=== PATIENT | male | born 1965 | race Caucasian/White ===

== ENCOUNTER → 2020-07-17 15:31 | Outpatient (BNVA) | payer MEDICAID, SELFPAY | PROVIDERS: PCP Student in an Organized Health Care Education/Training Program; Visit Provider Student in an Organized Health Care Education/Training Program | DX: M77.11 Lateral epicondylitis, right elbow (principal) | CPT/HCPCS: 99212 ==

== ENCOUNTER 2020-08-22 13:00 | Outpatient (RCR) | payer MEDICAID, SELFPAY ==
--- NOTE | 2020-08-22 13:34 | MHC.OT.DC ---
[address] [phone] F: [phone] Occupational Therapy Discharge Note Provider: Dr. Martinez Diagnosis: Right lateral epicondylitis Date of Evaluation: 07/29/20 Date of Discharge: 08/22/20 Treatments to Date: 7 Cancellations to Date: 0 Discharge Status: Achieved Goals Improved Function Independent with HEP Discharge Summary: Pt reporting lower pain today and good follow through w/ HEP. Wearing CFB. STM met, progressing towards LTG and Ind w/ self management. Electronically Signed By: Zina Mcdonald OTR/L Please Sign and return to therapist, thank you for your referral.
== END 2020-11-05 07:29 | disposition home or self-care (01) ==
LOC: HO.OT 13:00
PROVIDERS: Visit Provider Student in an Organized Health Care Education/Training Program
DX: M77.11 Lateral epicondylitis, right elbow (principal)
CPT/HCPCS: 97033; 97110; 97165

== ENCOUNTER 2021-07-10 08:55 | Outpatient (REF) | payer MEDICAID, SELFPAY ==
--- NOTE | ~2021-07-10 | XR_ITS ---
EXAMINATION: XR HAND, RIGHT CLINICAL INFORMATION: Pain in right hand COMPARISON: None TECHNIQUE: PA, lateral, and oblique views of the right hand. FINDINGS: Bones are normal anatomic alignment. I do not appreciate any acute fracture or dislocation. No bony destructive lesions or periosteal reaction. Minimal degenerative changes with slight osteophyte formation in the DIP joints. XR/XR hand RT min 3V IMPRESSION: Minimal degenerative changes but no acute bony abnormality.
== END 2021-07-10 08:56 | disposition home or self-care (01) ==
LOC: HO.XRAY 08:55
PROVIDERS: PCP Student in an Organized Health Care Education/Training Program; Visit Provider Nurse Practitioner Family
DX: M79.7 Fibromyalgia (principal); M79.641 Pain in right hand
CPT/HCPCS: 73130; 99212

== ENCOUNTER 2021-07-29 08:55 | Outpatient (RCR) | payer MEDICAID, SELFPAY ==
--- NOTE | 2021-08-05 10:48 | MHC.OT.DC ---
[address] [phone] F: [phone] Occupational Therapy Discharge Note Provider: Fang Singh Diagnosis: Lateral epicondylitis Date of Surgery: Date of Evaluation: 07/29/21 Date of Discharge: 08/05/21 Treatments to Date: 1 Cancellations to Date: 0 No Shows to Date: 2 Discharge Status: Visit Non-compliance Discharge Summary: Pt is a 56 yo male with worsening right lateral elbow pain and complaint of pain at radial wrist and digits Recent Xr shows mild degenerative changes at DIP jts Significant inc muscle bulk at arm and hand suggests inc use of right > left He was in OT exactly one year ago on 07/29/20 for same diagnosis of lat epicondylitis with a good outcome Today he present with S+S consistant with right lateral epicondylitis and complaint of bilateral elbow greater at night and right thumb pain limiting use of his hands. His Quick DASH score ie 93 pts [ End ] Electronically Signed By: Dorita Siddiqui OT CHT CLT Reviewed/agree with student documentation: N/A Therapist: Please Sign and return to therapist, thank you for your referral.
== END 2021-08-05 10:50 | disposition home or self-care (01) ==
LOC: HO.OT 08:55
PROVIDERS: PCP Student in an Organized Health Care Education/Training Program; Visit Provider Nurse Practitioner Family
DX: M77.11 Lateral epicondylitis, right elbow (principal)
CPT/HCPCS: 97166

== ENCOUNTER 2021-08-12 10:14 | Outpatient (REF) | payer MEDICAID, SELFPAY ==
[2021-08-12 11:23] LABS: Alanine Aminotransferase 14 U/L (0-40); Albumin Level 4.2 g/dL (3.5-5.0); Alkaline Phosphatase 50 U/L (39-117); Anion Gap 13 (12-20); Aspartate Amino Transferase 14 U/L (5-37); Bilirubin Total 0.6 mg/dL (0.0-1.0); Blood Urea Nitrogen 15 mg/dL (9-16); Calcium 9.5 mg/dL (8.4-10.2); Carbon Dioxide 24 mmol/L (22-29); Chloride 108 mmol/L (96-108); Estimated Glomerular Filt Rate > 60; Glucose Random 157 mg/dL (60-115); Potassium 4.2 mmol/L (3.3-5.1); Sodium 141 mmol/L (135-145); Total Protein 7.4 g/dL (6.5-8.0)
== END 2021-08-12 10:15 | disposition home or self-care (01) ==
LOC: HO.LAB 10:14
PROVIDERS: PCP Student in an Organized Health Care Education/Training Program; Visit Provider Nurse Practitioner Family
DX: M77.11 Lateral epicondylitis, right elbow (principal)
CPT/HCPCS: 36415; 80053

== ENCOUNTER → 2022-12-22 13:30 | Outpatient (BNVA) | payer MEDICAID, SELFPAY | PROVIDERS: PCP Student in an Organized Health Care Education/Training Program; Visit Provider Nurse Practitioner Family | DX: M79.7 Fibromyalgia (principal); M25.50 Pain in unspecified joint | CPT/HCPCS: 99212 ==

== ENCOUNTER 2023-12-20 10:24 | Outpatient (REF) | payer MEDICAID, SELFPAY ==
[2023-12-20 12:03] LABS: Alanine Aminotransferase 12 U/L (0-40); Alkaline Phosphatase 52 U/L (39-117); Anion Gap 11 (12-20); Aspartate Amino Transferase 14 U/L (5-37); Bilirubin Total 0.3 mg/dL (0.0-1.0); Blood Urea Nitrogen 16 mg/dL (9-16); C Reactive Protein 0.11 mg/dL (< or = 0.50); Carbon Dioxide 27 mmol/L (22-29); Chloride 109 mmol/L (96-108); Estimated Glomerular Filt Rate > 60; Glucose Random 118 mg/dL (60-115); Potassium 3.8 mmol/L (3.3-5.1); Sodium 143 mmol/L (135-145); Total Protein 7.3 g/dL (6.5-8.0)
[2023-12-20 12:11] LABS: Erythrocyte Sedimentation Rate 7 MM/HR (0-15)
== END 2023-12-20 10:25 | disposition home or self-care (01) ==
LOC: HO.LAB 10:24
PROVIDERS: PCP Student in an Organized Health Care Education/Training Program; Visit Provider Nurse Practitioner Family
DX: M25.50 Pain in unspecified joint (principal)
CPT/HCPCS: 36415; 80053; 85652; 86140

== ENCOUNTER 2024-10-13 10:17 | Outpatient (REF) | payer MEDICAID, SELFPAY ==
[2024-10-13 15:52] LABS: Alanine Aminotransferase 27 U/L (0-40); Albumin Level 4.1 g/dL (3.5-5.0); Alkaline Phosphatase 56 U/L (39-117); Anion Gap 12 (12-20); Aspartate Amino Transferase 28 U/L (5-37); Bilirubin Direct 0.1 mg/dL (0.0-0.5); Bilirubin Total 0.3 mg/dL (0.0-1.0); Blood Urea Nitrogen 16 mg/dL (9-16); Calcium 9.3 mg/dL (8.4-10.2); Carbon Dioxide 26 mmol/L (22-29); Chloride 108 mmol/L (96-108); Cholesterol 207 mg/dL (<200); Estimated Glomerular Filt Rate > 60; Glucose Random 109 mg/dL (60-115); HDL Cholesterol 38 mg/dL (>40); LDL Cholesterol Calculated 142 mg/dL (<100); Sodium 142 mmol/L (135-145); Total Protein 7.9 g/dL (6.5-8.0); Triglycerides 138 mg/dL (<150)
== END 2024-10-13 10:18 | disposition home or self-care (01) ==
LOC: HO.CHCLDS 10:17
PROVIDERS: Visit Provider Student in an Organized Health Care Education/Training Program
DX: I10 Essential (primary) hypertension (principal)
CPT/HCPCS: 36415; 80048; 80061; 80076

== ENCOUNTER 2025-01-15 15:25 | Outpatient (REF) | payer MEDICAID, SELFPAY ==
[2025-01-15 17:39] LABS: Estimated Average Glucose 111 mg/dL; Hemoglobin A1C 136.7362 umol/L; Hemoglobin A1c % 5.5 % (<6.0); Total Hemoglobin (HGBA1C) 3791.6525 umol/L
[2025-01-15 17:41] LABS: Anion Gap 14 (12-20); Blood Urea Nitrogen 16 mg/dL (9-16); Calcium 9.1 mg/dL (8.4-10.2); Carbon Dioxide 26 mmol/L (22-29); Chloride 105 mmol/L (96-108); Estimated Glomerular Filt Rate > 60; Glucose Random 83 mg/dL (60-115); Potassium 3.8 mmol/L (3.3-5.1); Sodium 141 mmol/L (135-145)
--- OUTSIDE RECORDS SUMMARY | 2025-01-15 18:14 | XMS_ITS | Encounter Summary ---
Author Organization [employer] Address [address] [place] [address] Care Team Providers Care Ordnance Artificer Name Role Phone Christianne Carrillo MD Primary Care Provider [phone] Encounter Details Date Type Department Care Team (Latest Contact Info) Description 01/15/2025 Travel Social History Tobacco Use Types Packs/Day Years Used Date Smoking Tobacco: Never Smokeless Tobacco: Never Depression Answer Date Recorded Patient Health Questionnaire-9 Score 18 10/13/2024 Patient Health Questionnaire-9 Score 18 10/13/2024 Last PHQ-9: Questionnaire Data Not on file 0 10/13/2024 Housing Stability Answer Date Recorded What is your housing situation today? I have kimberlynkris barroso 10/04/[address] you li ve. Do you have problems with any of the following? None of the above 10/04/2024 Food Insecurity Answer Date Recorded Within the past 12 months, y ou worried that your food would run out before you got money to buy more: Never True 10/04/2024 Within the past 12 months,th e food you bought just didn't last and you didn't have enough money to get more: Never True Transportation Answer Date Recorded In the past 12 months, has l ack of transportation kept you from medical appts, meetings, work or from getting things needed for daily living? No 10/04/2024 Utilities Answer Date Recorded In the past 12 months, has t he electric, gas, oil or water company threatened to shut off services in your home? No 10/04/2024 Depression Answer Date Recorded Patient Health Questionnaire-2 Score 5 10/13/2024 Internet Access Answer Date Recorded Internet Access Q1 Yes 10/04/2024 Internet Access Q2 Not on file 10/04/2024 Sex and Gender Information Value Date Recorded Sex Assigned at Male 07/20/2022 10:20 AM EDT Legal Sex Male 10:20 AM EDT Gender Identity Male 07/20/2022 10:20 AM EDT Sexual Orientation Straight 07/20/2022 10 :20 AM EDT documented as of this encounter Plan of Treatment Not on file documented as of this encounter Visit Diagnoses Not on filedocumented in this encounter Additional Health Concerns Assessment Noted Time PHQ-9 Depression Total Score: 18 025 10:28 AM EST documented as of this encounter Care Teams Ordnance Artificer Relationship Specialty Start Date End Date Christianne Carrillo MD [address] [place] [address] PCP - General Family Medicine 10/19/13 documented as of this encounter
--- OUTSIDE RECORDS SUMMARY | 2025-01-15 18:14 | XMS_ITS | Encounter Summary ---
Author Organization [employer] Address [address] [facility] [address] [place] [address] Care Team Providers Care Refinery Operator Assistant Name Role Phone Christianne Carrillo MD Primary Care Provider [phone] Reason for Visit * Reason Comments Rash Encounter Details Date Type Department Care Team ([facility] st Contact Info) Description 01/15/2025 3:00 PM EDT Office Visit [facility] [address], [place] [id number] Cali Azevedo MD [address] [place] [address] Nummular eczema (Primary Dx) Social History Tobacco Use Types Packs/Day Years Used Date Smoking Tobacco: Never Smokeless Tobacco: Never Depression Answer Date Recorded Patient Health Questionnaire-9 Score 18 10/13/2024 Patient Health Questionnaire-9 Score 18 10/13/2024 Last PHQ-9: Questionnaire Data Not on file 0 10/13/2024 Housing Stability Answer Date Recorded What is your housing situation today? I have kimberlyn barroso 10/04/[address] you [...] AM EDT documented as of this encounter Last Filed Vital Signs Vital Sign Reading Time Taken Comments Blood Pressure 141/93 01/15/2025 2:35 PM EDT Pulse 64 01/15/2025 2:35 PM EDT Temperature 36.8 ??C (98.2 ??F) 01/15/2025 2:35 PM ED T Respiratory Rate 18 01/15/2025 2:35 PM EDT Oxygen Saturation 98% 01/15/2025 2:35 PM EDT Inhaled Oxygen Concentration - - Weight 97.2 kg (214 lb 4 oz) 01/15/2025 2:35 PM EDT Height 179.1 cm (5' 10.5 ) 01/15/2025 2:35 PM ED T Body Mass Index 30.31 01/15/2025 2:35 PM EDT documented in this encounter Progress Notes * Cali Azevedo MD - 01/15/2025 3:00 PM EDT MAGY Callahan is a 59 y.o. male who presents for Rash. Rash Pertinent negatives include no cough. 3 weeks history of an itchy skin lesion of the left proximal and lateral leg. Patient Active Problem List Diagnosis Basal cell carcinoma of skin Primary hypertension Anxiety No Known Allergies Current Outpatient Medications on File Prior to Visit Medication Sig Dispense Refill amLODIPine (Norvasc) 10 MG tablet Take 1 tablet by mouth at bed time. cetirizine (ZyrTEC) 10 MG tablet Take 1 tablet (10 mg) by mouth Once per day. 30 tablet 5 cyclobenzaprine (Flexeril) 10 MG tablet Take 1 tablet (10 mg) by mouth at bedtime. 30 tablet 0 Diclofenac Sodium (Voltaren) 1 % gel Apply 2 g topically in the morning and 2 g at noon and 2 g in the evening and 2 g before bedtime. DULoxetine (Cymbalta) [address] capsule Take 1 capsule by mouth every 12 (twelve) hours. gabapentin (Neurontin) 100 MG capsule TAKE 1 CAPSULE BY MOUTH THREE TIMES A DAY 90 capsule 0 hydroCHLOROthiazide (HYDRODiuril) 25 MG tablet TAKE 1 TABLET BY MOUTH EVERY DAY 90 tablet 0 ibuprofen 600 MG tablet Take 1 tablet by mouth every 6 (six) hours. lisinopril 30 MG tablet TAKE 1 TABLET BY MOUTH EVERY MORNING 30 tablet 10 loratadine (Claritin) 10 MG tablet Take 10 mg by mouth in the morning. Magnesium Bisglycinate (Mag Glycinate) 100 MG tablet Take 1 tablet by mouth 2 times daily. meloxicam (Mobic) 15 MG tablet TAKE 1 TABLET BY MOUTH EVERY DAY 30 tablet 2 OXcarbazepine (Trileptal) 300 MG/5ML suspension Take 5 mL by mouth every 12 (twelve) hours. Vitamin B Complex-C capsule Take 1 capsule by mouth in the morning. zolpidem (Ambien) 10 MG tablet No current facility-administered medications on file prior to visit. Review of Systems Constitutional: Negative for appetite change, chills and diaphoresis. Respiratory: Negative for cough and choking. Cardiovascular: Negative for leg swelling. Musculoskeletal: Negative for gait problem and joint swelling. Skin: Positive for rash. OBJECTIVE Vitals: 01/15/25 1435 BP: (!) 141/93 BP Location: Left arm Patient Position: Sitting BP Cuff Size: Adult Pulse: 64 Resp: 18 Temp: 98.2 ??F (36.8 ??C) TempSrc: Oral SpO2: 98% Weight: 214 lb 4 oz (97.2 kg) Height: 5' 10.5 (1.791 m) Physical Exam Constitutional: General: He is not in acute distress. Appearance: Normal appearance. He is not ill-appearing, toxic-appearing or diaphoretic. Pulmonary: Effort: Pulmonary effort is normal. Skin: Comments: 2 x 2 cm round erythematous patch with some fine scales Neurological: Mental Status: He is alert. Assessment/Plan Assessment/Plan Diagnoses and all orders for this visit: Nummular eczema Comments: Most likely. Doubt necrobiosis lipoidica Labs ordered. Patient will be contacted with results. Patient is to call the office in 2 weeks if the lesion is not resolved. Orders: - Basic Metabolic Panel; Future - Hemoglobin A1c; Future - triamcinolone (Kenalog) 0.1 % ointment; Apply topically 2 times daily. - fexofenadine (Jimena) 180 MG tablet; Take 1 tablet (180 mg) by mouth if needed each day (Allergies). documented in this encounter Plan of Treatment Not on file documented as of this encounter Procedures Procedure Name Priority Date/Time Associated Diagnosis Comments HEMOGLOBIN A1C Routine 01/15/2025 3:28 PM EDT Nummular eczema BASIC METABOLIC PANEL Routine 01/15/2025 3:28 PM EDT Nummular eczema documented in this encounter Results * Hemoglobin A1c (01/15/2025 3:28 PM EDT) Hemoglobin A1c 5.5 <6.0 % [facility] Comment:Hemoglobin A1C Refer ence Range Adults: 4.8 - 6.0 % Non diabetic: < 6.0 % Goal: < 7.0 %Additional Action Suggested: > 8.0 %Note: Hemoglobin A1c results are invalid for patients with abnormal amounts of HbF. Blood transfusions may impact the HbA1c concentration in the patient sample. Estimated Average Glucose 111 mg/dL [facility] Comment:eAG = Estimated ave rage glucose which is %A1C expressed asaverage glucose, using the formula of the B7A-[id number] Glucose study (ADAG), Diabetes Care, Vol.31,#8,Apr. 2007 Blood Venous blood specimen / Unknown 01/15/2025 3:28 PM EDT 01/15/2025 5:23 PM EDT us Cali Azevedo MD LAB BLOOD ORDERABLES Final Result [facility] [address] [place] [address] [phone] * Basic Metabolic Panel (01/15/2025 3:28 PM EDT) Sodium 141 135 - 145 mmol/L [facility] Potassium 3.8 3.3 - 5.1 mmol/L [facility] Chloride 105 96 - 108 mmol/L [facility] Carbon Dioxide 26 22 - 29 mmol/L [facility] Anion Gap 14 12 - 20 [facility] Urea Nitrogen (BUN) 16 9 - 16 mg/dL [facility] Creatinine, Serum 1.01 0.5 - 1.4 mg/dL [facility] Estimated Glomerular Filt Rate >60 [facility] Comment:Chronic Kidney Disea se: Estimated GFR < 60 mL/min/[id number] Kidney Disease: Estimated GFR < 15 mL/min/1.73m2 Glucose 83 60 - 115 mg/dL [facility] Calcium 9.1 8.4 - 10.2 mg/dL [facility] Blood Venous blood specimen / Unknown 01/15/2025 3:28 PM EDT 01/15/2025 5:23 PM EDT us Cali Azevedo MD LAB BLOOD ORDERABLES Final Result [facility] [address] [place] [address] [phone] documented in this encounter Visit Diagnoses Diagnosis Nummular eczema- Primary Contact dermatitis and other eczema, due to unspecified cause documented in this encounter Additional Health Concerns Assessment Noted Time PHQ-9 Depression Total Score: 18 10/13/2 025 10:28 AM EST documented as of this encounter Care Teams Refinery Operator Assistant Relationship Specialty Start Date End Date Christianne Carrillo MD [address] [place] [phone] PCP - General Family Medicine 10/19/13 documented as of this encounter
--- OUTSIDE RECORDS SUMMARY | 2025-01-15 18:14 | XMS_ITS | Clinical Summary ---
Author Organization [facility] Address [address] [place] [address] Phone Care Team Providers Care Medical Diagnostic Radiographer Name Role Phone Christianne Carrillo MD Primary Care Provider [phone] Allergies No known active allergies Medications ibuprofen (ADVIL,MOTRIN) 600 mg tablet Take 1 tablet (600 mg total) by mouth every 6 (six) hours if needed for moderate pain (for pain). 20 tablet 5 Active oxyCODONE (OXY-IR) 5 mg immediate release capsule Take 1 capsule (5 mg total) by mouth every 6 (six) hours if needed for severe pain. Max Daily Amount: 20 mg 8 capsule 5 Active tamsulosin (FLOMAX) 0.4 mg 24 hr capsule Take 1 capsule (0.4 mg total) by mouth 1 (one) time each day for 7 days. Capsules should be taken 30 minutes following the same meal each day. 7 capsule 5 01/07/20 25 Active Problems No known active problems Encounters Date Type Department Care Team Description 12/30/2024 4:04 PM EDT - 12/30/2024 8:33 PM EDT Emergency [facility] Emergency [address] [place] [address] Right nephrolithiasis (Primary Dx); Hydronephrosis with urinary obstruction due to renal calculus Discharge Disposition: Home or Self Care from Last 3 Months Social History Tobacco Use Types Packs/Day Years Used Date Smoking Tobacco: Never Assessed Sex and Gender Information Value Date Recorded Sex Assigned at Male 12/30/2024 4:14 PM EDT Legal Sex Male 2:34 PM EST Gender Identity Male 12/30/2024 4:14 PM EDT Sexual Orientation Straight 12/30/2024 4: 14 PM EDT Obstetrics History Last Filed Vital Signs Vital Sign Reading Time Taken Comments Blood Pressure 157/100 12/30/2024 7:41 PM EDT Pulse 87 12/30/2024 7:41 PM EDT Temperature 37.1 ??C (98.8 ??F) 12/30/2024 7:41 PM ED T Respiratory Rate 18 12/30/2024 7:41 PM EDT Oxygen Saturation 97% 12/30/2024 7:41 PM EDT Inhaled Oxygen Concentration - - Weight 95.3 kg (210 lb) 12/30/2024 3:58 PM EDT Height 177.8 cm (5' 10 ) 12/30/2024 3:58 PM EDT Body Mass Index 30.13 12/30/2024 3:58 PM EDT Plan of Treatment Health Maintenance Due Date Last Done Comments Hepatitis B Vaccines (1 of 3 - 19+ 3-dose series) 1985 Pneumococcal Vaccine: 50+ Years (1 of 2 - PCV) 1985 Pneumococcal Vaccine: Pediatrics (0 to 5 Years) and At-Risk Patients (6 to 64 Years) (1 of 2 - PCV) 1985 Zoster Vaccines (1 of 2) 1985 COVID-19 Vaccine (3 - Modern a risk series) 2021 01/18/2021, 12/21/2020 Colorectal Cancer Screening: Colonoscopy 12/30/2024 HIV Screening 12/30/2024 Hepatitis C Screening 12/30/2024 Social Influencers of Health Screening 12/30/2024 Influenza Vaccine (Season Ended) 2025 Depression Screening 10/13/2025 10/13/2024 Hypertension/CHF/CAD Annual BMP Blood Test 12/30/2025 12/30/2024, 10/13/2024 DTaP,Tdap,and Td Vaccines (2 - Td or Tdap) 03/23/2026 03/23/2016 Cholesterol Screening (Lipid Panel) 10/13/2029 10/13/2024 HIB Vaccines Aged Out No longer eligi ble based on patient's age to complete this topic HPV Vaccines Aged Out No longer eligi ble based on patient's age to complete this topic Hepatitis A Vaccines Aged Out No long er eligible based on patient's age to complete this topic IPV Vaccines Aged Out No longer eligi ble based on patient's age to complete this topic MMR Vaccines Aged Out No longer eligi ble based on patient's age to complete this topic Meningococcal ACWY Vaccine Aged Out N o longer eligible based on patient's age to complete this topic Meningococcal B Vaccine Aged Out No l onger eligible based on patient's age to complete this topic RSV Immunization Patients Under 20 months Aged Out No longer eligible b ased on patient's age to complete this topic Varicella Vaccines Aged Out No longer eligible based on patient's age to complete this topic Procedures Procedure Name Priority Date/Time Associated Diagnosis Comments CT ABDOMEN PELVIS WO CONTRAST STAT 12/30/2024 7:33 PM EDT BAPTISTE URINE CULTURE TUBE STAT 12/30/2024 6:13 PM EDT URINALYSIS WITH REFLEX MICROSCOPIC AND CULTURE STAT 12/30/2024 6:13 PM EDT URINALYSIS WITH REFLEX MICROSCOPIC AND CULTURE STAT 12/30/2024 6:13 PM EDT CBC WITH AUTO DIFFERENTIAL STAT 12/30/2024 4:10 PM EDT COMPREHENSIVE METABOLIC PANEL STAT 12/30/2024 4:10 PM EDT CBC AND DIFFERENTIAL STAT 12/30/2024 4:10 PM EDT from Last 3 Months Results * CT Abdomen Pelvis wo Contrast (12/30/2024 7:33 PM EDT) Anatomical Region Laterality Modality Body Computed Tomogra phy 12/30/2024 7:57 PM EDT Impressions 12/30/2024 7:57 PM EDT Obstructive 4 mm right ureteropelvic junction calculus with mild hydronephrosis. This document has been electronically signed by: Foster Mason MD on 12/30/2024 19:57:37 Narrative 12/30/2024 7:57 PM EDT INDICATION: Hematuria, unknown cause CT abdomen and pelvis without contrast Comparison: None Findings: Diffuse esophageal mural thickening, nonspecific. Atelectasis. Mild splenomegaly. Mild hepatomegaly. Distended gallbladder. Bilateral perinephric stranding, nonspecific. Obstructive 4 mm right ureteropelvic junction calculus with mild hydronephrosis. No bowel obstruction, pneumoperitoneum, or pneumatosis. Prominent inguinal and retroperitoneal nodes, nonspecific. Fat containing inguinal hernias. Right pelvic phleboliths. Prostatomegaly noted. Scattered colonic diverticulosis without diverticulitis or colitis. Mild rectal mural thickening may be related to degree of underdistention. Normal appendix. Osteopenia with diffuse multilevel spondylosis. Likely vertebral body hemangioma in the lower thoracic spine. Procedure Note Foster Mason MD - 12/30/2024 INDICATION: Hematuria, unknown cause CT abdomen and pelvis without contrast Comparison: None Findings: Diffuse esophageal mural thickening, nonspecific. Atelectasis. Mild splenomegaly. Mild hepatomegaly. Distended gallbladder. Bilateral perinephric stranding, nonspecific. Obstructive 4 mm right ureteropelvic junction calculus with mild hydronephrosis. No bowel obstruction, pneumoperitoneum, or pneumatosis. Prominent inguinal and retroperitoneal nodes, nonspecific. Fat containing inguinal hernias. Right pelvic phleboliths. Prostatomegaly noted. Scattered colonic diverticulosis without diverticulitis or colitis. Mild rectal mural thickening may be related to degree ofunderdistention. Normal appendix. Osteopenia with diffuse multilevel spondylosis. Likely vertebral body hemangioma in the lower thoracic spine. IMPRESSION: Obstructive 4 mm right ureteropelvic junction calculus with mild hydronephrosis. This document has been electronically signed by: Foster Mason MD on 12/30/2024 19:57:37 Emely [facility] [place] CT PROCEDURES Final Re sult * (ABNORMAL) Urinalysis with reflex microscopic and culture (12/30/2024 6:13 PM EDT) Pathologist [facility] Specific [place] Urine 1.013 1.003 - 1.030 LAB URINALYSIS - AUTOMATED METHOD 12/30/2024 6:36 PM EDT [facility] pH, Urine 7.0 5.0 - 8.0 pH LAB URINALYSIS - AUTOMATED METHOD 12/30/2024 6:[address] [facility] Leukocytes, Urine Negative Negative LAB URINALYSIS - AUTOMATED METHOD 12/30/2024 6:[address] [facility] Nitrite, Urine Negative Negative LAB URINALYSIS - AUTOMATED METHOD 12/30/2024 6:[address] [facility] Protein, Urine 100(A) <=Trace mg/dL LAB URINALYSIS - AUTOMATED METHOD 12/30/2024 6:[address] [facility] Glucose, Urine Negative Negative mg/dL LAB URINALYSIS - AUTOMATED METHOD 12/30/2024 6:[address] [facility] Ketones, Urine Trace(A) Negative mg/dL LAB URINALYSIS - AUTOMATED METHOD 12/30/2024 6:[address] [facility] Urobilinogen, Urine 0.2 0.2 - 1.0 mg/dL LAB URINALYSIS - AUTOMATED METHOD 12/30/2024 6:[address] [facility] Bilirubin, Urine Negative Negative LAB URINALYSIS - AUTOMATED METHOD 12/30/2024 6:[address] [facility] Blood, Urine Large(A) Negative LAB URINALYSIS - AUTOMATED METHOD 12/30/2024 6:[address] [facility] RBC, Urine 295.7(H) 0 - 4 /HPF LAB URINALYSIS - AUTOMATED METHOD 12/30/2024 6:[address] [facility] WBC, Urine 3.0 0 - 4 /HPF LAB URINALYSIS - AUTOMATED METHOD 12/30/2024 6:[address] [facility] Squamous Epithelial, Urine 4 0 - 60 /LPF LAB URINALYSIS - AUTOMATED METHOD 12/30/2024 6:[address] [facility] Bacteria, Urine Negative Negative /HPF LAB URINALYSIS - AUTOMATED METHOD 12/30/2024 6:36 PM EDT [facility] Hyaline Casts, Urine 1.6 0 - 3 /LPF LAB URINALYSIS - AUTOMATED METHOD 12/30/2024 6:36 PM EDT [facility] Urine Urine specimen obtained by clean catch procedure / Unknown Non-blood Collection / Unknown 12/30/2024 6:13 PM EDT 12/30/2024 6:18 PM EDT [facility] B Marco CHAPA LAB URINE ORDERABLES Final Resu lt Performing Organization Address City/[facility]/ZIP Co de Phone Number [facility] [address] [place] [address], [place] [phone] * Baptiste urine culture tube (12/30/2024 6:13 PM EDT) Extra Tube Hold for add-ons. 12/30/2024 8:01 PM EDT [facility] Comment:Auto resulted. Urine Urine specimen obtained by clean catch procedure / Unknown Non-blood Collection / Unknown 12/30/2024 6:13 PM EDT 12/30/2024 6:18 PM EDT Jagdeep B Marco CHAPA LAB URINE ORDERABLES Final Resu lt Performing Organization Address City/[facility]/ZIP Co de Phone Number [facility] [address] [place] [address], [place] [phone] * (ABNORMAL) CBC auto differential (12/30/2024 4:10 PM EDT) WBC 10.3 4.8 - 10.8 K/[facility] LAB HEMETOLOGY METHOD 12/30/2024 4:42 PM EDT [facility] RBC 5.10 4.50 - 5.50 M/mcL LAB HEMETOLOGY METHOD 12/30/2024 4:42 PM EDT [facility] Hemoglobin 15.5 13.5 - 17.5 g/dL LAB HEMETOLOGY METHOD 12/30/2024 4:42 PM T [facility] Hematocrit 45.2 42.0 - 54.0 % LAB HEMETOLOGY METHOD 12/30/2024 4:[address] [facility] MCV 87.9 79.0 - 98.0 FL LAB HEMETOLOGY METHOD 12/30/2024 4:[address] [facility] MCH 30.2 27.0 - 32.0 pcg LAB HEMETOLOGY METHOD 12/30/2024 4:[address] [facility] MCHC 34.3 32.0 - 37.0 g/dL LAB HEMETOLOGY METHOD 12/30/2024 4:[address] [facility] RDW 12.9 11.0 - 15.0 % LAB HEMETOLOGY METHOD 12/30/2024 4:[address] [facility] Platelets 191 130 - 400 K/mcL LAB HEMETOLOGY METHOD 12/30/2024 4:[address] [facility] MPV 11.3(H) 7.0 - 11.0 FL LAB HEMETOLOGY METHOD 12/30/2024 4:[address] [facility] NRBC 0.0 <1.0 % LAB HEMETOLOGY METHOD 12/30/2024 4:[address] [facility] NRBC Absolute 0.00 <0.10 K/mcL LAB HEMETOLOGY METHOD 12/30/2024 4:[address] [facility] Neutrophils Relative 48.0 % LAB HEMETOLOGY METHOD 12/30/2024 4:[address] [facility] Lymphocytes Relative 41.5 % LAB HEMETOLOGY METHOD 12/30/2024 4:[address] [facility] Monocytes Relative 8.9 % LAB HEMETOLOGY METHOD 12/30/2024 4:42 PM EDT [facility] Eosinophils Relative 0.8 % LAB HEMETOLOGY METHOD 12/30/2024 4:42 PM EDT [facility] Basophils Relative 0.4 % LAB HEMETOLOGY METHOD 12/30/2024 4:42 PM EDT [facility] Immature Granulocytes Relative 0.4 % LAB HEMETOLOGY METHOD 12/30/2024 4:42 PM EDT [facility] Neutrophils Absolute 4.96 1.50 - 7.00 K/mcL LAB HEMETOLOGY METHOD 12/30/2024 4:42 PM EDT [facility] Lymphocytes Absolute 4.28 1.00 - 5.00 K/mcL LAB HEMETOLOGY METHOD 12/30/2024 4:42 PM EDT [facility] Monocytes Absolute 0.92 0.20 - 1.00 K/mcL LAB HEMETOLOGY METHOD 12/30/2024 4:42 PM EDT [facility] Eosinophils Absolute 0.08 0.00 - 0.50 K/mcL LAB HEMETOLOGY METHOD 12/30/2024 4:42 PM EDT [facility] Basophils Absolute 0.04 0.00 - 0.20 K/mcL LAB HEMETOLOGY METHOD 12/30/2024 4:42 PM EDT [facility] Immature Granulocytes Absolute 0.04(H) 0.00 - 0.03 K/mcL LAB HEMETOLOGY METHOD 12/30/2024 4:42 PM EDT [facility] Blood Venous blood specimen / Unknown Venipuncture / Unknown 12/30/2024 4:10 PM EDT 12/30/2024 4:36 PM EDT us Jagdeep Pepe Lara MD LAB BLOOD ORDERABLES Final Resu lt [facility] [address] [place] [address], * (ABNORMAL) Comprehensive metabolic panel (12/30/2024 4:10 PM EDT) Sodium 141 133 - 145 mmol/L LAB CHEMISTRY METHOD 12/30/2024 5:[address] [facility] Potassium 3.7 3.5 - 5.5 mmol/L LAB CHEMISTRY METHOD 12/30/2024 5:[address] [facility] Chloride 108 96 - 110 mmol/L LAB CHEMISTRY METHOD 12/30/2024 5:[address] [facility] CO2 28 21 - 32 mmol/L LAB CHEMISTRY METHOD 12/30/2024 5:[address] [facility] Anion Gap 5 3 - 11 LAB CHEMISTRY METHOD 12/30/2024 5:[address] [facility] Glucose 109(H) 70 - 100 mg/dL LAB CHEMISTRY METHOD 12/30/2024 5:[address] [facility] BUN 19 5 - 25 mg/dL LAB CHEMISTRY METHOD 12/30/2024 5:[address] [facility] Creatinine 1.17 0.70 - 1.30 mg/dL LAB CHEMISTRY METHOD 12/30/2024 5:[address] [facility] eGFR 72 >=60 mL/min/1. 73m2 LAB CHEMISTRY METHOD 12/30/2024 5:[address] [facility] Comment:Calculation based on the??Chronic Kidney Disease Epidemiology Collaboration (CKD-EPI) equation refit??without adjustment for race. BUN/Creatinine Ratio 16.2 LAB CHEMISTRY METHOD 12/30/2024 5:[address] [facility] Calcium 9.6 8.5 - 10.5 mg/dL LAB CHEMISTRY METHOD 12/30/2024 5:[address] [facility] AST (SGOT) 22 10 - 42 unit/L LAB CHEMISTRY METHOD 12/30/2024 5:[address] [facility] ALT (SGPT) 25 10 - 60 unit/L LAB CHEMISTRY METHOD 12/30/2024 5:14 PM EDT [facility] Alkaline Phosphatase 66 42 - 121 unit/L LAB CHEMISTRY METHOD 12/30/2024 5:14 PM EDT [facility] Total Protein 7.8 6.0 - 8.0 g/dL LAB CHEMISTRY METHOD 12/30/2024 5:14 PM EDT [facility] Albumin 4.0 3.2 - 5.0 g/dL LAB CHEMISTRY METHOD 12/30/2024 5:14 PM EDT [facility] Total Bilirubin 0.4 0.0 - 1.4 mg/dL LAB CHEMISTRY METHOD 12/30/2024 5:14 PM EDT [facility] Blood Venous blood specimen / Unknown Venipuncture / Unknown 12/30/2024 4:10 PM EDT 12/30/2024 4:36 PM EDT Jagdeep Pepe Lara MD LAB BLOOD ORDERABLES Final Resu lt [facility] [address] [place] [address], from Last 3 Months Insurance MEDICAID - [place] Care Teams Medical Diagnostic Radiographer Relationship Specialty Start Date End Date Christianne Carrillo MD [address] [place] [phone] PCP - General Family Medicine 12/30/24
--- OUTSIDE RECORDS SUMMARY | 2025-01-15 18:14 | XMS_ITS | Encounter Summary ---
Author Organization [employer] Address [address] [facility] [address] [place] [address] Care Team Providers Care Funeral Professional Name Role Phone Christianne Carrillo MD Primary Care Provider [phone] Encounter Details Date Type Department Care Team ([facility] st Contact Info) Description 01/01/2025 Orders Only [facility] [address] [place] [address] ProviderFlorecita MD Social History Tobacco Use Types Packs/Day Years [...] Diagnosis Comments CT ABDOMEN PELVIS WO CONTRAST Routine 12/30/2024 9:53 AM EDT documented in this encounter Results * CT Abdomen Pelvis w/o Contrast (12/30/2024 9:53 AM EDT) Anatomical Region Laterality Modality Body, Pelvis, Abdomen Computed T omography Historical Provider MD [place] CT PROCEDURES Final R esult documented in this encounter Visit Diagnoses Not on filedocumented in this encounter Additional Health Concerns Assessment Noted Time PHQ-9 Depression Total Score: 18 025 10:28 AM EST documented as of this encounter Care Teams Funeral Professional Relationship Specialty Start Date End Date Christianne Carrillo MD [address] [place] [phone] PCP - General Family Medicine 10/19/13 documented as of this encounter
--- OUTSIDE RECORDS SUMMARY | 2025-01-15 18:14 | XMS_ITS | Encounter Summary ---
Author Organization [employer] Address [address] [facility] [address] [place] [address] Care Team Providers Care 21 Dealer Name Role Phone Christianne Carrillo MD Primary Care Provider Encounter Details Date Type Department Care Team ([facility] st Contact Info) Description 12/15/2022 Orders Only [facility] [address] [place] [address] Christianne Carrillo MD [address] [place] [address] Social History Tobacco Use Types Packs/Day Years [...] Diagnoses Not on filedocumented in this encounter Care Teams 21 Dealer Relationship Specialty Start Date End Date Christianne Carrillo MD [address] [place] [phone] PCP - General Family Medicine 10/19/13 documented as of this encounter
--- OUTSIDE RECORDS SUMMARY | 2025-01-15 18:14 | XMS_ITS | Encounter Summary ---
Author Organization [facility] [facility] Address [address] [place] [address] Care Team Providers Care Resolution Analyst Name Role Phone Christianne Carrillo MD Primary Care Provider [phone] Encounter Details Date Type Department Care Team (Latest Contact Info) Description 05/12/2022 Abstract [facility] CONVERSIONS Dental, Provider, DDS Social History Tobacco Use Types Packs/Day Years [...] on filedocumented in this encounter Care Teams Resolution Analyst Relationship Specialty Start Date End Date Christianne Carrillo MD [address] [place] [phone] PCP - General Family Medicine 10/19/13 documented as of this encounter
--- OUTSIDE RECORDS SUMMARY | 2025-01-15 18:14 | XMS_ITS | Clinical Summary ---
Author Organization [employer] Address [address] [facility] 7t [place] [address] Care Team Providers Care Business Risk Consultant Name Role Phone Christianne Carrillo MD Primary Care Provider [phone] Allergies No known active allergies Medications amLODIPine (Norvasc) 10 MG tablet Take 1 tablet by mouth at bed time. 2 Active Vitamin B Complex-C capsule Take 1 capsule by mouth in the morning. 5 Active Diclofenac Sodium (Voltaren) 1 % gel Apply 2 g topically in the morning and 2 g at noon and 2 g in the evening and 2 g before bedtime. 0 Active DULoxetine (Cymbalta) [address] capsule Take 1 capsule by mouth every 12 (twelve) hours. Active ibuprofen 600 MG tablet Take 1 tablet by mouth every 6 (six) hours. 1 Active loratadine (Claritin) 10 MG tablet Take 10 mg by mouth in the morning. 0 Active Magnesium Bisglycinate (Mag Glycinate) 100 MG tablet Take 1 tablet by mouth 2 times daily. 4 Active OXcarbazepine (Trileptal) 300 MG/5ML suspension Take 5 mL by mouth every 12 (twelve) hours. 2 Active zolpidem (Ambien) 10 MG tablet 3 Active gabapentin (Neurontin) 100 MG capsule TAKE 1 CAPSULE BY MOUTH THREE TIMES A DAY 90 capsule 4 Active hydroCHLOROthiazi de (HYDRODiuril) 25 MG tablet TAKE 1 TABLET BY MOUTH EVERY DAY 90 tablet 4 Active meloxicam (Mobic) 15 MG tablet TAKE 1 TABLET BY MOUTH EVERY DAY 30 tablet 2 4 Active cyclobenzaprine (Flexeril) 10 MG tablet Take 1 tablet (10 mg) by mouth at bedtime. 30 tablet 4 Active cetirizine (ZyrTEC) 10 MG tablet Take 1 tablet (10 mg) by mouth Once per day. 30 tablet 5 5 04/11/20 25 Active lisinopril 30 MG tablet TAKE 1 TABLET BY MOUTH EVERY MORNING 30 tablet 10 5 Active triamcinolone (Kenalog) 0.1 % ointmentIndicatio ns:Nummular eczema Apply topically 2 times daily. 30 g 5 Active fexofenadine (Jimena) 180 MG tabletIndications :Nummular eczema Take 1 tablet (180 mg) by mouth if needed each day (Allergies). 20 tablet 5 04/15/20 25 Active Active Problems Problem Noted Date Diagnosed Date Primary hypertension 10/13/2024 Anxiety 10/13/2024 Basal cell carcinoma of skin 03/27/2021 Encounters Date Type Department Care Team Description 01/15/2025 3:00 PM EDT Office Visit [facility] [address] [place], [place] [phone] Cali Azevedo MD Nummulamonica eczema (Primary Dx) 01/15/2025 Travel 01/01/2025 Orders Only [facility] [address] [place], [place] [phone] Provider, MD Florecita 12/01/2024 Population Health Risk Score [facility] [address] [place] [phone] Provider, Population Health Generic 11/27/2024 Refill [facility] [address], [place] [phone] Christianne Carrillo MD from Last 3 Months Social History Tobacco Use Types Packs/Day Years Used Date Smoking Tobacco: Never Smokeless Tobacco: Never Tobacco Cessation:Counseling Given: Not Answered Depression Answer Date Recorded Patient Health Questionnaire-9 [...] Orientation Straight 07/20/2022 10 :20 AM EDT Last Filed Vital Signs Vital Sign Reading [...] Mass Index 30.31 01/15/2025 2:35 PM EDT Plan of Treatment Health Maintenance Due Date Last Done Comments CT Colonography 1966 Colonoscopy 1966 Colorectal Cancer Screening 1966 Dental Prophylaxis 1966 FIT DNA/Cologuard 1966 FIT 1966 FOBT 1966 HIV Screening 1966 Sigmoidoscopy 1966 Derm Melanoma Skin Check 1966 Hepatitis C Screening 02/16/1984 Hepatitis B Vaccines (1 of 3 - 19+ 3-dose series) 1985 Pneumococcal Vaccine: 50+ Years (1 of 1 - PCV) 02/16/2016 Zoster Vaccines (1 of 2) 02/16/2016 Dental Oral Exam 11/13/2022 05/12/2022 Dental X-Ray: Bitewings 05/02/2023 05/01/2022 COVID-19 Vaccine (3 - 2023-2 5 season) 2024 01/18/2021, 12/21/2020 Influenza Vaccine (#1) 2025 Postp oned from 05/21/2024 (Patient Refused) Dental X-Ray: Full Mouth 05/13/2025 022, 05/01/2022 SDOH Screening 10/04/2025 10/04/2024 Alcohol/Substance Use Screening 10/13/2025 10/13/2024 Depression Screening 10/13/2025 10/13/2024, 10/13/2024 Tobacco Screening 01/15/2026 01/15/2025 DTaP/Tdap/Td Vaccines (2 - T d or Tdap) 03/23/2026 03/23/2016 Lipid Panel 10/13/2029 10/13/2024, 07/04/2021 RSV Patients and Patients Aged 60 years or older (1 - 1-dose 75+ series) 2041 HIB Vaccines Aged Out No longer eligi [...] patient's age to complete this topic Meningococcal Vaccine Aged Out No irma donnell eligible based on patient's age to complete this topic RSV under 20 months Aged Out No longe r eligible based on patient's age to complete this topic Rotavirus Vaccines Aged Out No longer eligible based on patient's age to complete this topic Procedures Procedure Name Priority Date/Time Associated Diagnosis Comments HEMOGLOBIN A1C Routine 01/15/2025 3:28 PM EDT Nummular eczema BASIC METABOLIC PANEL Routine 01/15/2025 3:28 PM EDT Nummular eczema CT ABDOMEN PELVIS WO CONTRAST Routine 12/30/2024 9:53 AM EDT LIPID PANEL, STANDARD Routine 10/13/2024 10:22 AM EST Primary hypertension PANORAMIC RADIOGRAPHIC IMAGE Routine 05/12/2022 12:00 AM EDT COMPREHENSIVE ORAL EVALUATION - NEW OR ESTABLISHED PATIENT Routine 05/12/2022 12:00 AM EDT INTRAORAL - COMPLETE SERIES OF RADIOGRAPHIC IMAGES Routine 05/01/2022 12:00 AM EDT from Last 3 Months or Most Recently Relevant to Health Maintenance Results * Hemoglobin A1c (01/15/2025 3:28 PM EDT) Hemoglobin A1c 5.5 <6.0 % [facility] Comment:Hemoglobin A1C Refer ence Range Adults: 4.8 - 6.0 % Non diabetic: < 6.0 % Goal: < 7.0 %Additional Action Suggested: > 8.0 %Note: Hemoglobin A1c results are invalid for patients with abnormal amounts of HbF. Blood transfusions may impact the HbA1c concentration in the patient sample. Estimated Average Glucose 111 mg/dL [facility] Comment:eAG = Estimated ave rage glucose which is %A1C expressed asaverage glucose, using the formula of the [id number] Glucose study (ADAG), Diabetes Care, Vol.31,#8,Apr. 2007 Blood Venous blood specimen / Unknown 01/15/2025 3:28 PM EDT 01/15/2025 5:23 PM EDT us Cali Azevedo MD LAB BLOOD ORDERABLES Final Result [facility] [address] [place] [phone] * Basic Metabolic Panel (01/15/2025 3:28 PM EDT) Sodium 141 135 - 145 mmol/L [facility] Potassium 3.8 3.3 - 5.1 mmol/L [facility] Chloride 105 96 - 108 mmol/L [facility] Carbon Dioxide 26 22 - 29 mmol/L [facility] Anion Gap 14 12 - 20 [facility] Urea Nitrogen (BUN) 16 9 - 16 mg/dL [facility] Creatinine, Serum 1.01 0.5 - 1.4 mg/dL [facility] Estimated Glomerular Filt Rate >60 [facility] Comment:Chronic Kidney Disea se: Estimated GFR < 60 mL/min/[id number] Kidney Disease: Estimated GFR < 15 mL/min/1.73m2 Glucose 83 60 - 115 mg/dL [facility] Calcium 9.1 8.4 - 10.2 mg/dL [facility] Blood Venous blood specimen / Unknown 01/15/2025 3:28 PM EDT 01/15/2025 5:23 PM EDT Cali Azevedo MD LAB BLOOD ORDERABLES Final Result [facility] [address] [place] [phone] * CT Abdomen Pelvis w/o Contrast (12/30/2024 9:53 AM EDT) Anatomical Region Laterality Modality Body, Pelvis, Abdomen Computed T omography us Historical Provider IMG CT PROCEDURES Final R esult * (ABNORMAL) Lipid Panel, Standard (10/13/2024 10:22 AM EST) Triglycerides 138 <150 mg/dL [facility] Comment:Desirable Triglyceri de: less than 150 mg/dLBorderline High Triglyceride 150-199 mg/dLHigh Triglyceride: 200-499 mg/dLVery High Triglyceride: greater than or equal to 5OO mg/dL Cholesterol 207(H) <200 mg/dL [facility] Comment:Desirable Cholestero l: less than 200 mg/dLBorderline High Cholesterol: 200-239 mg/dLHigh Cholesterol: greater than 239 mg/dL LDL Cholesterol Calculated 142(H) <100 mg/dL [facility] Comment:Desirable LDL: less than 100 mg/dLNear Optimal/Above Optimal LDL: 110- 129 mg/dLBorderline High LDL: 130-159 mg/dLHigh LDL: 160-189 mg/dLVery High LDL: greater than or equal to 190 mg/dL HDL Cholesterol 38(L) >40 mg/dL [facility] Comment:Desirable HDL: great er than 40 mg/dL Note: This HDL assay may give artificially low results in patients with liver disease. Blood Venous blood specimen / Unknown 10/13/2024 10:22 AM EST 10/13/2024 2:34 PM EST us Christianne Carrillo MD LAB BLOOD ORDERABLES Final Resul t [facility] [address] [place] [phone] from Last 3 Months or Most Recently Relevant to Health Maintenance Insurance [facility] STAND ADULT Care Teams Business Risk Consultant Relationship Specialty Start Date End Date Christianne Carrillo MD [address] [place] [phone] PCP - General Family Medicine 10/19/13
--- OUTSIDE RECORDS SUMMARY | 2025-01-15 18:14 | XMS_ITS | Encounter Summary ---
Author Organization [facility] Address [address] [facility] 7t [place] [address] Care Team Providers Care Eye Dropper Assembler Name Role Phone Christianne Carrillo MD Primary Care Provider [phone] Reason for Visit * Reason Comments Med Refill Encounter Details Date Type Department Care Team (Late st Contact Info) Description 03/15/2024 Refill [facility] [address] [place], [place] [phone] Christianne Carrillo MD [address] [place] [address] Social History Tobacco Use Types Packs/Day Years Used Date Smoking Tobacco: Never Smokeless Tobacco: Never Sex and Gender Information Value Date Recorded Sex Assigned at Male 07/20/2022 10:20 AM EDT Legal Sex Male 10:20 AM EDT Gender Identity Male 07/20/2022 10:20 AM EDT Sexual Orientation Straight 07/20/2022 10 :20 AM EDT documented as of this encounter Plan of Treatment Not on file documented as of this encounter Visit Diagnoses Not on filedocumented in this encounter Care Teams Eye Dropper Assembler Relationship Specialty Start Date End Date Christianne Carrillo MD [address] [place] [phone] PCP - General Family Medicine 10/19/13 documented as of this encounter
--- OUTSIDE RECORDS SUMMARY | 2025-01-15 18:14 | XMS_ITS | Encounter Summary ---
Author Organization [employer] Address [address] [facility] [address]t [place] [address] Care Team Providers Care Environmental Science Instructor Name Role Phone Christianne Carrillo MD Primary Care Provider [phone] Reason for Visit * Reason Onset Date Comments triage 12/14/2022 Encounter Details Date Type Department Care Team ([facility] st Contact Info) Description 12/14/2022 Telephone [facility] [address] [place], [place] [phone] Christianne Carrillo MD [address] [place] [address] triage Social History Tobacco Use Types Packs/Day Years Used Date Smoking Tobacco: Never Assessed Sex and Gender Information Value Date Recorded Sex Assigned at Male 07/20/2022 10:20 AM EDT Legal Sex Male 10:20 AM EDT Gender Identity Male 07/20/2022 10:20 AM EDT Sexual Orientation Straight 07/20/2022 10 :20 AM EDT documented as of this encounter Miscellaneous Notes * Telephone Encounter - Gabby Villa RN - 12/14/2022 4:05 PM EDT Called pt via [employer] drug [facility] alcohol treatment specialist [phone] Estella. Pt. States that he has been having flu like sx. Pt. Is having allergy and sinus sx. Pt. Is looking for refill on his Loratadine only. Pt. Is drinkingplenty of water and fluids to stay hydrated. Pt. Does not have any nasal drainage just excessive sneezing. No fever. Will submit refill for Loratadine as pt. Requests. Protocol Used: Sinus Pain or Congestion (Adult) Protocol-Based Disposition: Home Care Positive Triage Question: * Sinus congestion as part of a cold, present < 10 days * All higher-acuity triage questions were negative Care Advice Discussed: * Nasal Washes for a Stuffy Nose * How to Make Saline (Salt Water) Nasal Wash * Hydration * Telephone Encounter - Susan Scott - 12/14/2022 2:22 PM EDT Symptom: Sinus Symptoms Outcome: Schedule an appointment to be seen within 24 hours Reason: No high acuity concerns reported by caller The caller accepted this outcome documented in this encounter Plan of Treatment Not on file documented as of this encounter Visit Diagnoses Not on filedocumented in this encounter Care Teams Environmental Science Instructor Relationship Specialty Start Date End Date Christianne Carrillo MD [address] [place] [phone] PCP - General Family Medicine 10/19/13 documented as of this encounter
--- OUTSIDE RECORDS SUMMARY | 2025-01-15 18:14 | XMS_ITS | Clinical Summary ---
Author Organization [facility] Address [address] [place] [address] Care Team Providers Care Production Tech Name Role Phone Christianne Carrillo Primary Care Provider [phone] Allergies No known active allergies Medications diclofenac (VOLTAREN) 1% gel SMARTSI Gram(s) Topical 4 Times Daily PRN 07/03/2021 Active Cymbalta 30 mg capsule Take 30 mg by mouth once a day. 04/02/2021 Active lisinopriL (PRINIVIL,ZESTR IL) 10 mg tablet Take 10 mg by mouth once a day. 07/03/2021 Active meloxicam (MOBIC) 15 mg tablet Take 15 mg by mouth once a day. 07/03/2021 Active TrileptaL 600 mg tablet Take 600 mg by mouth 2 times a day. 04/02/2021 Active Ambien 10 mg tablet Take 10 mg by mouth nightly as needed. 06/17/2021 Active amLODIPine (NORVASC) 10 mg tablet TAKE 1 TABLET BY ORAL ROUTE EVERY DAY 10/27/2021 Active cyclobenzaprine (FLEXERIL) 10 mg tablet Take 10 mg by mouth nightly. 03/03/2021 Active hydroCHLOROthia zide (HYDRODIURIL) 25 mg tablet TAKE 1 TABLET BY ORAL ROUTE ONCE 10/27/2021 Active lisinopriL (PRINIVIL,ZESTR IL) 30 mg tablet TAKE 1 TABLET BY ORAL ROUTE EVERY DAY 07/07/2021 Active amLODIPine (NORVASC) 5 mg tablet Take 5 mg by mouth once a day. 08/01/2021 Active cetirizine (ZyrTEC) 10 mg tablet Take 10 mg by mouth daily. 10/13/2024 5 Active gabapentin (NEURONTIN) 100 mg capsule 100 mg 3 times a day. 11/06/2023 Active ibuprofen (MOTRIN) 200 mg tablet Take 200 mg by mouth every 6 hours as needed for pain. Active acetaminophen (TYLENOL) 325 mg tablet Take 650 mg by mouth every 6 hours as needed for pain. Active Hospital, Clinic, or Other Facility Administered Medication Ordered Dose Route Frequency Start Date End Date Status oxyCODONE IR (ROXICODONE) tablet 5 mg 5 mg oral Once 07/18/2021 Active Active Problems No known active problems Encounters Date Type Department Care Team Description 11/01/2024 Telephone [facility] 4th [address] [place] [address], [place] [phone] Sales Agent Financial Report Service: Tresa Canales MD 10/31/2024 1:00 PM EST Procedure visit [facility] 4th [address] [place] [address], [place] [phone] Sales Agent Financial Report Service: Scott Claire MD Basal cell carcinoma of nose (Primary Dx) from Last 3 Months Social History Tobacco Use Types Packs/Day Years Used Date Smoking Tobacco: Never Smokeless Tobacco: Never Tobacco Cessation:Counseling Given: Not Answered Sex and Gender Information Value Date Recorded Sex Assigned at Not on file Legal Sex Male 12:58 PM EDT Gender Identity Not on file Sexual Orientation Not on file Last Filed Vital Signs Vital Sign Reading Time Taken Comments Blood Pressure 140/100 08/11/2022 3:34 PM EST Pulse 76 08/11/2022 3:34 PM EST Temperature - - Respiratory Rate - - Oxygen Saturation - - Inhaled Oxygen Concentration - - Weight 94.3 kg (208 lb) 12/03/2021 4:17 PM EDT Height 177.8 cm (5' 10 ) 12/03/2021 4:17 PM EDT Body Mass Index 29.84 12/03/2021 4:17 PM EDT Plan of Treatment Upcoming Encounters Date Type Department Care Team (Late st Contact Info) Description 05/10/2025 4:00 PM EDT Follow-Up [facility] 4th Floor [address] [facility], [place] [address] Sales Agent Financial Report Service: Daisy Palm MD [address] [place] [phone] Health Maintenance Due Date Last Done Comments Cologuard 1966 Colon Cancer Screening 1966 Colonoscopy 1966 FOBT / Fit Test 1966 HIV Screening 1966 Hepatitis C Screening 1966 Sigmoidoscopy 1966 Hepatitis B Vaccines (1 of 3 - 19+ 3-dose series) 1985 Pneumococcal Vaccine: 50+ Ye ars (1 of 1 - PCV) 02/16/2016 Zoster Vaccines (1 of 2) 02/16/2016 COVID-19 Vaccine (3 - season) 05/21/202409/2020, 12/21/2020 Alcohol/Substance Use Screening 09/20/2024 Depression Screening and Follow-Up 09/20/2024 Social Drivers of Health Annual Screening 09/20/2024 Influenza Vaccine (Season Ended) 2025 DTaP,Tdap,and Td Vaccines (2 - Td or Tdap) 03/23/2026 03/23/2016 RSV Vaccine (60+ years old a nd patients) (1 - 1-dose 75+ series) 2041 Procedures * Due to [place] Click[place] law, this organization might not be sharing negative HIV tests. Procedure Name Priority Date/Time Associated Diagnosis Comments PROCEDURE - SCANNED 10/31/2024 from Last 3 Months Results * Due to [place] state law, this organization might not be sharing negative HIV tests. * PROCEDURE - SCANNED (10/31/2024) us Onbase Scan Keeley SCANNED PROCEDURES Final Resu lt from Last [address] [place] [address] [address] [place] [address] Care Teams Production Tech Relationship Specialty Start Date End Date Christianne Carrillo [address] [place] [phone] PCP - General Family Medicine 04/08/21
--- OUTSIDE RECORDS SUMMARY | 2025-01-15 18:14 | XMS_ITS | Referral Summary ---
Author Organization [facility] Address [address] [place] [address] Care Team Providers Care Valve Pipe Irrigator Name Role Phone Christianne Carrillo Primary Care Provider [phone] Encounters Date Type Department Care Team Description 11/01/2024 Telephone [facility] [address] [phone] Straight Line Edger: Tresa Canales MD 10/31/2024 1:00 PM EST Procedure visit [facility] [address], [place] [phone] Straight Line Edger: Soctt Claire MD Basal cell carcinoma of nose (Primary Dx) from Last 3 Months Allergies No known active allergies Medications diclofenac [...] Take 10 mg by mouth daily. 10/13/2024 Active gabapentin (NEURONTIN) 100 mg capsule 100 [...] Active Active Problems No known active problems Social History Tobacco Use Types Packs/Day Years [...] Info) Description 05/10/2025 4:00 PM EDT Follow-Up [facility] 4th Floor [address] [facility], [place] [phone] Straight Line Edger: Daisy Palm MD [address] [place] [address] Procedures * Due to [place] state law, this organization might not be sharing negative HIV tests. Procedure Name Priority Date/Time Associated Diagnosis Comments PROCEDURE - SCANNED 10/31/2024 from Last 3 Months Results * Due to [place] state law, this organization might not be sharing negative HIV tests. * PROCEDURE - SCANNED (10/31/2024) us Onbase Scan Keeley SCANNED PROCEDURES Final Resu lt from Last 3 Months Insurance [address] [place] [id number] [facility] Care Teams Valve Pipe Irrigator Relationship Specialty Start Date End Date Christianne Carrillo [address] [place] [phone] PCP - General Family Medicine 04/08/21
== END 2025-01-15 15:26 | disposition home or self-care (01) ==
LOC: HO.CHCLDS 15:25
PROVIDERS: Visit Provider Internal Medicine
DX: L30.0 Nummular dermatitis (principal)
CPT/HCPCS: 36415; 80048; 83036